=== PATIENT | male | born 1965 | race American Indian/Alaskan Native ===

== ENCOUNTER 2017-01-16 11:21 | Day surgery (SDC) | payer BC ==
[~2017-01-16 11:21] MED LIST: ANCEF/STERILE WATER 2 GM/20 ML IV NR
[2017-01-16] MEDS ORDERED: NACL BACTERIOSTATIC INFILTRATI ONE (12:14)
[2017-01-16] MEDS ORDERED: NACL 0.9% 1000 ML 1,000 ML ONE (12:33)
--- NOTE | 2017-01-16 12:33 | Anesthesia Consultation ---
<RICKY FOLEY - Last Filed: 01/16/17 12:32> Anesthesia Consult and Med Hx Date of service: 01/16/17 - Airway Anesthetic Teeth Evaluation: Good ROM Head & Neck: Adequate Mental/Hyoid Distance: Adequate Mallampati Class: Class II Intubation Access Assessment: Probably Good - Pre-Operative Health Status ASA Pre-Surgery Classification: ASA2 - Pulmonary Hx Smoking: No Hx Sleep Apnea: Yes (DX SLEEP APNEA , NO CPAP USE.) - Cardiovascular System Hx Hypertension: Yes (OFF MEDS X 3 YRS) - Central Nervous System CVA: Yes (2016- NO DEFICITS AT PRESENT) - Endocrine Hx Non-Insulin Dependent Diabetes: Yes (no meds) - Other Systems Hx Cancer: No <ANAMIKA AMAYA - Last Filed: 01/16/17 12:35> Anesthesia Consult and Med Hx - Pre-Operative Health Status ASA Pre-Surgery Classification: ASA3
[2017-01-16] MEDS ORDERED: DILAUDID ONE (12:34)
[2017-01-16] MEDS ORDERED: XYLOCAINE MPF 2% ONE (12:34)
[2017-01-16] MEDS ORDERED: DIPRIVAN 10 MG/ML IV ONE (12:35)
--- NOTE | 2017-01-16 12:35 | Anesthesia Day of Surgery ---
Anesthesia Day of Surgery - Day of Surgery Patient Examined: Yes Patient H&P Reviewed: Yes (High BG on the DOS is addressed with the surgeon) Patient is NPO: Yes
[2017-01-16] MEDS ORDERED: MARCAINE 0.25% INFILTRATI ONE (12:41)
[2017-01-16] MEDS ORDERED: VERSED IV NR (13:00)
[2017-01-16] MEDS ORDERED: NACL 0.9% 1000 ML 1,000 ML IV SCH (13:00)
[2017-01-16] MEDS ORDERED: PEPCID IV NR (13:00)
[2017-01-16] MEDS ORDERED: DILAUDID IV PRN (13:18)
[2017-01-16] MEDS ORDERED: PERCOCET 5/325 PO PRN (14:00)
[2017-01-16] MEDS ORDERED: ZOFRAN IV PRN (14:00)
[2017-01-16] MEDS ORDERED: ZOFRAN ONE (14:02)
--- NOTE | 2017-01-16 14:11 | Short Stay Summary ---
Short Stay Documentation Date of service: 01/16/17 - History H&P: obtained from office Past Medical History: No medical history - Allergies and Medications Current Medications: Allergies No Known Allergies Allergy (Verified 01/10/17 18:22) Home Medications Medication Instructions Recorded Confirmed Last Taken Type No Known Home Medications [No 01/10/17 01/10/17 Unknown History Reported Home Medications] Active Medications Cefazolin Sodium (Ancef/Sterile Water 2 Gm/20 Ml) 2 gm IV PREOP NR Stop: 01/16/17 23:00 Famotidine (Pepcid) 20 mg IV PREOP NR Stop: 01/16/17 23:59 Last Admin: 01/16/17 12:53 Dose: 20 mg Hydromorphone HCl (Dilaudid) 0.5 mg IV Q10MIN PRN PRN Reason: Pain , Severe (7-10) Stop: 01/16/17 23:59 Sodium Chloride (Nacl 0.9% 1000 Ml) 1,000 mls @ 100 mls/hr IV DIRECT YONNY Last Admin: 01/16/17 12:45 Dose: 100 mls/hr Midazolam HCl (Versed) 2 mg IV PREOP NR Stop: 01/16/17 23:59 Last Admin: 01/16/17 12:52 Dose: 2 mg - Brief post op/procedure progress note Date of procedure: 01/16/17 Pre-op diagnosis: phimosis, voluntary sterilization Post-op diagnosis: same Procedure: circ, bilat vasectomy Anesthesia: GETA Surgeon: MICHAEL CARMONA Estimated blood loss: minimal Pathology: list (foreskin, vas deferens---partial) Specimen disposition: to lab Condition: stable - Hospital course Hospital course: smith on chart - Disposition Condition at discharge: Stable Disposition: DC-01 TO HOME OR SELFCARE Short Stay Discharge Plan Follow up with: ANAMIKA OLIVER JR, MD [Primary Care Provider] - 7 Days
--- NOTE | 2017-01-16 14:27 | Operative Report ---
PREOPERATIVE DIAGNOSES: Phimosis, voluntary sterilization. POSTOPERATIVE DIAGNOSES: Phimosis, voluntary sterilization. PROCEDURE: Circumcision bilateral vasectomy. SURGEON: Jerzy Coelho M.D. ANESTHESIA: General. ANESTHESIOLOGIST: Dr. Adler. ESTIMATED BLOOD LOSS: Minimal. FLUIDS: Crystalloid. COMPLICATIONS: No complications. INDICATIONS: This 51-year-old gentleman known to my service with a history of erectile dysfunction as well. At this point, he presented to the office with difficulty retracting his foreskin. Exam was consistent with phimosis. He also discussed vasectomy. Risks, benefits, and complications were explained. The patient agreed to proceed. DESCRIPTION OF PROCEDURE: The patient was taken to the operative suite, placed in a supine position. After adequate general anesthesia, placed in a supine position, prepped and draped in a sterile fashion. Vas deferens was isolated on the left side with towel clip. A 15 blade knife was used to excise the skin, expose vas deferens. A 1 cm segment was identified, doubly clipped and excised. Similar procedure was performed on the right side as well. 2-0 Vicryl tie was used to tie the cut ends. They were dropped back in the scrotum. Skin was closed with 2-0 Vicryl in interrupted fashion. This was performed bilaterally. Next, attention was taken at the foreskin that was phimotic. It was marked at the level of the coronal ridge. Dorsal and ventral slit was made. Foreskin was circumferentially removed and sent for routine pathologic evaluation. The proximal skin was retracted, adequate hemostasis was achieved. The proximal and distal shaft was reapproximated and closed with 2-0 chromic in interrupted fashion. Xeroform gauze was placed on the incision. The patient tolerated the procedure well and was extubated and taken to recovery room. He will go home on [facility] and [place] and follow up in the office. JOB# [id number] LIEN/DAVID
[2017-01-16] MEDS ORDERED: NORCO 5/325 PO PRN (14:36)
[2017-01-16 17:38] VITALS: BP 158/84
--- NOTE | 2017-01-16 18:39 | Post Anesthesia Evaluation ---
- Post Anesthesia Evaluation Patient Participated: Yes Airway Patent: Yes Stable Respiratory Function: Yes Nausea/Vomiting: No Temp > 96.8F: Yes Pain Manageable: Yes Adequeate Hydration: Yes Anesthesia Complications: No Block Receding Appropriately: Not Applicable Patient on Ventilator: No
== END 2017-01-16 16:25 | disposition home or self-care (01) ==
LOC: OR 11:21
PROVIDERS: ATTEND Urology
DX: N47.1 Phimosis (principal); N48.1 Balanitis; Z30.2 Encounter for sterilization; I10 Essential (primary) hypertension; E11.9 Type 2 diabetes mellitus without complications; Z86.73 Personal history of transient ischemic attack (TIA), and cerebral infarction without residual deficits; Z79.899 Other long term (current) drug therapy; Z79.84 Long term (current) use of oral hypoglycemic drugs; Z79.82 Long term (current) use of aspirin
CPT/HCPCS: 54161; 55250; 82962; 88302; 88304; J0690; J1170; J2250; J2405; J2704; J7030; J1815